=== PATIENT | female | born 1970 | race Caucasian/White ===

== ENCOUNTER 2021-04-26 16:18 | Outpatient (REF) | payer BC, SELFPAY ==
--- NOTE | ~2021-04-26 | MM_ITS ---
EXAMINATION: MM SCREENING DIGITAL BREAST TOMOSYNTHESIS, BILATERAL CLINICAL INFORMATION: Screening. Asymptomatic. The lifetime risk of breast cancer based on the Tyrer-Cuzick Model is 21.0%. Additional annual screening with breast MRI may be of benefit in women with a Score of 20% or greater. COMPARISON: Mammography: April 13, 2020 and studies dating back to July 27, 2012 TECHNIQUE: Digital breast tomosynthesis is performed in both the craniocaudal and mediolateral oblique views along with computer-aided detection (CAD). Synthesized 2D images are generated from the tomosynthesis. FINDINGS: The breasts are heterogeneously dense, which may obscure small masses (ACR BI-RADS breast composition Category c). There are no significant masses, abnormal calcifications, or other abnormalities. There are some stable circumscribed densities seen bilaterally. MM/MM tomosynthesis screening BI IMPRESSION: There are no significant changes from prior study. ASSESSMENT: BI-RADS 1: Negative RECOMMENDATION: Routine annual mammography screening. This patient's information was entered into a reminder system with a target due date for their next mammogram.
== END 2021-04-26 16:19 | disposition home or self-care (01) ==
LOC: HO.MAMMO 16:18
PROVIDERS: PCP Internal Medicine; Visit Provider Advanced Practice Midwife
DX: Z12.31 Encounter for screening mammogram for malignant neoplasm of breast (principal)
CPT/HCPCS: 77063; 77067

== ENCOUNTER 2022-05-02 15:58 | Outpatient (REF) | payer BC, SELFPAY ==
--- NOTE | ~2022-05-02 | MM_ITS ---
EXAMINATION: MM SCREENING DIGITAL BREAST TOMOSYNTHESIS, BILATERAL CLINICAL INFORMATION: Screening. Asymptomatic. The lifetime risk of breast cancer based on the Tyrer-Cuzick Model is 21%. COMPARISON: Mammography: 04/26/2021, 04/13/2020, 11/25/2018 TECHNIQUE: Digital breast tomosynthesis is performed in both the craniocaudal and mediolateral oblique views along with computer-aided detection (CAD). Synthesized 2D images are generated from the tomosynthesis. FINDINGS: There are scattered areas of fibroglandular density (ACR BI-RADS breast composition Category b). Breast tissue composition borders on heterogeneously dense. Small cyst mid 6:00 right breast is decreased since 2019. Parenchymal pattern is otherwise similar to prior exams. No developing density or interval mass or architectural abnormality. There are no significant masses, abnormal calcifications, or other abnormalities. The axilla and skin contours are unremarkable. MM/MM tomosynthesis screening BI IMPRESSION: No mammographic evidence of malignancy. ASSESSMENT: BI-RADS 2: Benign RECOMMENDATION: Routine annual mammography screening. This patient's information was entered into a reminder system with a target due date for their next mammogram.
== END 2022-05-02 15:59 | disposition home or self-care (01) ==
LOC: HO.MAMMO 15:58
PROVIDERS: PCP Obstetrics & Gynecology Gynecology; Visit Provider Internal Medicine
DX: Z12.31 Encounter for screening mammogram for malignant neoplasm of breast (principal)
CPT/HCPCS: 77063; 77067

== ENCOUNTER 2023-05-08 16:07 | Outpatient (REF) | payer BC, SELFPAY | END 2023-05-08 16:08 | disposition home or self-care (01) | LOC: HO.MAMMO 16:07 | PROVIDERS: Visit Provider Obstetrics & Gynecology Gynecology | DX: Z12.31 Encounter for screening mammogram for malignant neoplasm of breast (principal) | CPT/HCPCS: 77063; 77067 ==

== ENCOUNTER → 2023-05-08 16:15 | Outpatient (BNV) | payer BC, SELFPAY | PROVIDERS: Visit Provider Radiology Diagnostic Radiology | DX: Z12.31 Encounter for screening mammogram for malignant neoplasm of breast (principal) | CPT/HCPCS: 77063; 77067 ==

== ENCOUNTER 2024-05-20 11:06 | Outpatient (REF) | payer BC, SELFPAY ==
--- NOTE | ~2024-05-20 | MM_ITS ---
EXAMINATION: MM SCREENING DIGITAL BREAST TOMOSYNTHESIS, BILATERAL CLINICAL INFORMATION: Screening. Asymptomatic. COMPARISON: Mammography: Comparison is made with available priors TECHNIQUE: Digital breast mammography with tomosynthesis is performed in both the craniocaudal and mediolateral oblique views along with computer-aided detection (CAD). FINDINGS: The breasts are heterogeneously dense, which may obscure small masses (ACR BI-RADS breast composition Category c). There are no significant masses, abnormal calcifications, or other abnormalities. MM/MM tomosynthesis screening BI IMPRESSION: No mammographic evidence of malignancy. ASSESSMENT: BI-RADS BI-RADS 1 - Negative RECOMMENDATION: Routine annual mammography screening. 1 year F/U This examination should not preclude the clinical evaluation of a suspicious palpable abnormality. This patient's information was entered into a reminder system with a target due date for their next mammogram. Electronically signed by: Candi Walden DO 06/01/2024 12:27 PM EDT
== END 2024-05-20 11:07 | disposition home or self-care (01) ==
LOC: HO.MAMMO 11:06
PROVIDERS: PCP Nurse Practitioner Family; Visit Provider Nurse Practitioner Family
DX: Z12.31 Encounter for screening mammogram for malignant neoplasm of breast (principal)
CPT/HCPCS: 77063; 77067

== ENCOUNTER → 2024-05-20 11:30 | Outpatient (BNV) | payer BC, SELFPAY | PROVIDERS: PCP Nurse Practitioner Family; Visit Provider Internal Medicine | DX: Z12.31 Encounter for screening mammogram for malignant neoplasm of breast (principal) | CPT/HCPCS: 77063; 77067 ==

== ENCOUNTER 2025-05-27 11:33 | Outpatient (REF) | payer BC, SELFPAY ==
--- NOTE | ~2025-05-27 | MM_ITS ---
EXAMINATION: MM SCREENING DIGITAL BREAST TOMOSYNTHESIS, BILATERAL CLINICAL INFORMATION: Screening. Asymptomatic. COMPARISON: Mammography: Comparison is made with available priors TECHNIQUE: Digital breast mammography with tomosynthesis is performed in both the craniocaudal and mediolateral oblique views along with computer-aided detection (CAD). FINDINGS: The breasts are heterogeneously dense, which may obscure small masses. There are no significant masses, abnormal calcifications, or other abnormalities. MM/MM tomosynthesis screening BI IMPRESSION: No mammographic evidence of malignancy. ASSESSMENT: BI-RADS Category 1: Negative RECOMMENDATION: Routine annual mammography screening. 1 year F/U This examination should not preclude the clinical evaluation of a suspicious palpable abnormality. This patient's information was entered into a reminder system with a target due date for their next mammogram. Electronically signed by: Candi Walden DO 05/31/2025 08:59 AM EDT
--- OUTSIDE RECORDS SUMMARY | 2025-05-27 14:00 | XMS_ITS | Encounter Summary ---
Author Organization [facility] Address [address] [place] [address] Phone Care Team Providers Care Machine Spreader Name Role Phone Keren Taylor MD Unavailable [phone] Mandie Mcgowan WELDING SUPERVISOR Primary Care Provider + [phone] Reema Mosher CNP Primary Care Provider Encounter Details Date Type Department Care Team (Late st Contact Info) Description 07/17/2022 Procedure Pass [facility] - [address] [place] [address] Social History Tobacco Use Types Packs/Day Years Used Date Smoking Tobacco: Former Smokeless Tobacco: Never Alcohol Use Standard Drinks/Week Comments Yes 0 (1 standard drink = 0.6 oz pur e alcohol) rare Child or Family Care Answer Date Record ed Do you have problems with on e of the following making it difficult for you to work, study, or receive health care? No 10/14/2021 Education Answer Date Recorded Are you interested in help w ith more adult education (for example, completing high school, GED, job training, learning the [place] language, technical skills, or developing parenting skills)? No 10/14/2021 Food Answer Date Recorded Within the past 6 months we worried whether our food would run out before we got money to buy more. Never True 10/14/2021 Within the past 6 months the food we bought just didn't last and we didn't have enough money to get more. Never True Residential Stability Answer Date Recor ded What is your housing situation today? I have lubna ricketts 10/14/2021 How many times have you moved in the past 12 mon ths? One time 10/14/2021 Paying for Meds Answer Date Recorded Do you have trouble paying for medicines? No 10/14/2021 Paying Utility Bills Answer Date Record ed Do you have trouble paying your heating or elect ricity bill? No 10/14/2021 Transportation Answer Date Recorded Has the lack of transportati on kept you from medical appointments or from getting medications? No 10/14/2021 Unemployment Answer Date Recorded Are you currently unemployed or working on a part-time or temporary basis, and looking for work? 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 Not on file Not on file documented as of this encounter Last Filed Vital Signs Vital Sign Reading Time Taken Comments Blood Pressure - - Pulse - - Temperature - - Respiratory Rate - - Oxygen Saturation - - Inhaled Oxygen Concentration - - Weight 88.5 kg (195 lb) 07/19/2022 4:49 PM EST Height 165.1 cm (5' 5 ) 07/19/2022 4:49 PM EST Body Mass Index 32.45 07/19/2022 4:49 PM EST documented in this encounter Plan of Treatment Upcoming Encounters Date Type Department Care Team (Late st Contact Info) Description 06/15/2025 3:15 PM EST Office Visit [facility] [address] [place] [address] Ray Marie, DO [address] [facility], [address] [place] [address] [email or web address] Teressa Grant, PT [address] [place] [address] [email or web address] 06/22/2025 3:15 PM EST Office Visit [facility] [address] [place] [address] Ray Marie, DO [address] [address] JuanitaTeressa, PT [address] [place] [address] [email or web address] 06/29/2025 3:15 PM EST Office Visit [address] [address] Ray Marie, DO [address] [address] JuanitaTeressa, PT [address] [place] [address] [email or web address] 07/06/2025 3:15 PM EST Office Visit [address] [address] Ray Marie, DO [address] [address] JuanitaTeressa, PT [address] [place] [address] [email or web address] 07/13/2025 3:15 PM EST Office Visit [address] [address] Ray Marie, DO [address] [address] TimothyTeressa mello, PT [address] [place] [address] [email or web address] documented as of this encounter Visit Diagnoses Not on filedocumented in this encounter Additional Health Concerns Infection Onset Date Last Indicated Resolved Time CoV-Risk 07/10/2022 07/10/2022 07/21/2022 1:22 AM EST Assessment Noted Time PHQ-2 Depression Total Score: 0 10/15/19 8:22 PM EDT documented as of this encounter Care Teams Machine Spreader Relationship Specialty Start Date End Date Mandie Mcgowan CNP [address] [facility], [address]nd [place] [address] [email or web address] PCP - General Family Medicine 05/20/22 05/19/23 Reema Mosher CNP [address] [facility], [address] [place] [address] [email or web address] PCP - General Nurse Practitioner 05/20/23 Keren Taylor MD [address] [facility], [address] [place] [address] [email or web address] Insurance Assigned Provider 11/08/23 documented as of this encounter Additional Source Comments The information contained in this document represents components of the legal health record. It is not the complete legal health record.[facility]
--- OUTSIDE RECORDS SUMMARY | 2025-05-27 14:00 | XMS_ITS | Patient Health Record ---
Author Organization [facility] Address [address] [place] [address] Care Team Providers Care Shop Service Technician Name Role Phone Joey Pratt MD Primary Care Provider Kenneth De Leon Unavailable [phone] Reason For Referral No Information Medications Medication SIG (Take, Route, Fr equency, Duration) Notes Start Date End Date Status Omeprazole 20 MG TAKE 1 CAPSULE BY MO UTH EVERY MORNING; Duration: 30 Active Lisinopril Active Problems Problem Type SNOMED Code ICD Code Onset Dates Problem Status W/U Status Risk Notes Problem Right upper quadrant pain (298061996) Abdominal pain, right upper quadrant (789.01) Active confirmed Problem Epigastric pain (97289784) Abdominal pain, epigastric (789.06) Active confirmed Plan Of Treatment Pending Test Test Name Order Date LIVER PROFILE 05/29/2012 LIVER PROFILE 05/29/2012 AMYLASE 05/29/2012 AMYLASE 05/29/2012 LIPASE 05/29/2012 LIPASE 05/29/2012 CBC with MANUAL DIFFERENTIAL 05/29/2012 CBC with MANUAL DIFFERENTIAL 05/29/2012 SED RATE (ESR) 05/29/2012 Insurance Providers Payer Name Payer Address Payer Phone Subscriber Number Group Number Insured Name Patient Relationship to Insured Coverage Start Date Coverage End Date O [employer]UE [employer] PROFESSIONAL CLAIMS [address] [place] [address] [id number] MENDY UGALDE Self - patient is the insured Medical (General) History Medical History History ICD Code HTN Denies ME,DM,CVA,Lung disease,renal dise ase Surgical History Surgery Date(Month/Year) termination of oral surgery
--- OUTSIDE RECORDS SUMMARY | 2025-05-27 14:01 | XMS_ITS | Encounter Summary ---
Author Organization [facility] Address [address] [place] [address] Phone Care Team Providers Care Section Plotter Operator Name Role Phone Keren Taylor MD Unavailable [phone] Reema Mosher CNP Primary Care Provider Encounter Details Date Type Department Care Team (Late st Contact Info) Description 11/01/2023 Procedure Pass [facility], [facility] Scan - [facility] [address] [place] [address] Social History Tobacco Use Types Packs/Day Years [...] Answer Date Recorded Are you interested in more education? Not on jerald e 10/16/2023 Are you concerned about learning? Not on file 10/16/2023 No 10/16/2023 No 10/16/2023 Food Answer Date Recorded Within the past [...] your housing situation today? I have lubna sing 10/14/2021 How many times have you moved [...] basis, and looking for work? No 10/14/2021 Digital Access Answer Date Recorded No 12/31/2022 No 12/31/2022 Reliable internet access at home? Not on file 12/31/2022 Device with a working camera? Not on file Intimate Partner Violence Answer Date R ecorded Denied Basic Needs Not on file 06/20/2023 In the past 12 months have y ou been in a relationship with a person who hurts, threatens, or tries to control you? No 06/20/2023 Worried food would run out Not on file 06/20 In the past 12 months have y ou been in a relationship with a person who hurts, threatens, or tries to control you? 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 Wish to be (Past 1 Month) No 024 10:00 AM EDT Lyn Hendrickson, RN 2. Non-Specific Active Suici raissa Thoughts (Past 1 Month) No 11/01/2023 10:00 AM EDT Antoni Hendrickson RN 6. Suicidal Behavior (Lifetime) No 4 10:00 AM Lyn Lambert RN documented as of this encounter Plan of Treatment Upcoming Encounters Date Type Department Care Team (Late st Contact Info) Description 06/15/2025 3:15 PM EST Office Visit [address] [address] Ray Marie, DO [address] [address] Juanita Teressa, PT [address] [place] [address] [email or web address] 06/22/2025 3:15 PM EST Office Visit [address] [address] Ray Marie, DO [address] [address] Juanita Teressa, PT [address] [place] [address] [email or web address] 06/29/2025 3:15 PM EST Office Visit [address] [address] Ray Marie, DO [address] [address] Juanita Teressa, PT [address] [place] [address] [email or web address] 07/06/2025 3:15 PM EST Office Visit [address] [address] Ray Marie, DO [address] [address] Teressa Grant, PT [address] [place] [address] [email or web address] 07/13/2025 3:15 PM EST Office Visit [facility] [address] [place] [address] Ray Marie, DO 234 [facility], [address] [place] [address] Teressa Grant, PT [address] [place] [address] [email or web address] documented as of this encounter Visit Diagnoses Not on filedocumented in this encounter Additional Health Concerns Assessment Noted Time PHQ-2 Depression Total Score: 0 06/20/20 8:24 AM EST documented as of this encounter Care Teams Section Plotter Operator Relationship Specialty Start Date End Date Reema Mosher CNP 234 [facility] [address] [place] [address] PCP - General Nurse Practitioner 05/20/23 Keren Taylor MD 234 [facility] [address] [place] [address] Insurance Assigned Provider 11/08/23 documented as of this encounter Additional Source Comments The information contained in this document represents components of the legal health record. It is not the complete legal health record.[facility]
--- OUTSIDE RECORDS SUMMARY | 2025-05-27 14:01 | XMS_ITS | Clinical Summary ---
Author Organization [facility] Address [email or web address] [place] [address] Phone Care Team Providers Care Crane Helper Name Role Phone Keren Taylor MD Unavailable Reema Mosher CNP Primary Care Provider Allergies Active Allergy Reactions Criticality Noted Date Comments Pollen Extracts 06/12/2023 Medications oxyBUTYnin (DITROPAN-XL) 10 MG 24 hr tabletIndications :Overactive bladder TAKE 1 TABLET BY MOUTH EVERY DAY 90 tablet 3 5 Active lisinopril (PRINIVIL,ZESTRIL ) 40 MG tabletIndications :Essential hypertension TAKE 1 TABLET DAILY 90 tablet 3 5 Active buPROPion (WELLBUTRIN) 75 MG immediate release tabletIndications :Medication refill TAKE 1 TABLET BY MOUTH EVERY DAY IN THE MORNING 90 tablet 3 5 Active amLODIPine (NORVASC) 5 MG tabletIndications :Essential hypertension TAKE 1 TABLET (5 MG TOTAL) BY MOUTH DAILY. 90 tablet 3 5 Active Active Problems Problem Noted Date Diagnosed Date Chronic right SI joint pain 12/20/2024 Assessment & Plan (12/20/2024 10:54 AM EDT): I diagnosed Rae with right SI joint pain-getting worse. I ordered an x-ray of the lumbar spine to rule out any disc disease as she is also experiencing low back pain. I wrote for Flexeril-to be taken at night and not to drive or operate any heavy machinery as this can impair her judgment. I also wrote for prednisone-to be taken in the mornings and I gave guidance regarding side effects. I gave her exercises to start on. I gave guidance regarding additional symptomatic management. I put a referral into PT. I informed her to call if there are any other issues or concerns or if this gets worse. Follow-up in a month. She understands and agrees. Chronic midline low back pain without sciatica 0 12/20/2024 Assessment & Plan (12/20/2024 10:54 AM EDT): Rae has low back pain-I ordered an x-ray of the lumbar spine and I will update her with the results. Please see plan chronic right SI joint pain for further detail. Overweight (BMI 25.0-29.9) 06/20/2023 Assessment & Plan (12/22/2023 4:04 PM EDT): Congratulated on weight loss and continued efforts to improve diet. Encouraged to continue to increase exercise and movement. Assessment & Plan (06/20/2023 10:35 AM EST): Encouraged focusing on improvements to diet and exercise. Hypermobility of urethra 11/06/2022 Urge incontinence of urine 11/06/2022 Seasonal depression 10/02/2022 Assessment & Plan (12/22/2023 4:00 PM EDT): Stable, well managed on Wellbutrin 75mg, denies side effects. Denies SI/HI. Will continue this medication. Assessment & Plan (06/20/2023 10:31 AM EST): Continues Wellbutrin 75mg and is feeling well, denies side effects. Will continue this medication. Encouraged increasing exercise regimen. Assessment & Plan (11/06/2022 5:17 PM EDT): Continue Wellbutrin 75 mg. She had side effects at 150 mg Assessment & Plan (10/02/2022 5:34 PM EST): Counseled on regular exercise, sleep, self-care. Start Wellbutrin 150 mg daily. Possible side effects reviewed. Follow-up in 4 weeks. BMI 32.0-32.9,adult 05/27/2022 Assessment & Plan (11/06/2022 5:19 PM EDT): She has lost 16 pounds in the last 4 months. She is working hard with healthy dietary changes, reducing calorie intake and increasing exercise. Assessment & Plan (10/02/2022 5:33 PM EST): She plans to start exercising again although her motivation has been low. We are starting her on Wellbutrin to help with her depression Assessment & Plan (05/27/2022 7:34 PM EDT): Discussed getting back into exercise habits. She is finding motivation. Anxiety state 05/20/2022 Assessment & Plan (12/22/2023 4:00 PM EDT): Stable, well managed on Wellbutrin 75mg, denies side effects. Denies SI/HI. Will continue this medication. Assessment & Plan (05/27/2022 7:33 PM EDT): Encouraged self care, exercise. Used lorazepam for acute anxiety last week. Assessment & Plan (05/20/2022 2:23 PM EDT): Acute anxiety in the setting of recent in the family and her mother's severe health issues. She reports chronic anxiety that she generally roselia very well with. I gave her a short course of lorazepam. Possible side effects, sedating and potentially addictive nature of the medication were discussed with her. She will follow-up in 7 to 10 days. Essential hypertension 10/17/2021 Assessment & Plan (12/22/2023 3:51 PM EDT): Stable, well managed on amlodipine 5mg and lisinopril 40mg, denies side effects. Normotensive today. Will continue to monitor. Assessment & Plan (06/20/2023 10:27 AM EST): Wanaged on amlodipine 5mg and lisinopril 40mg, denies side effects. Normotensive today. Will continue to monitor. Assessment & Plan (11/06/2022 5:18 PM EDT): Her diastolic blood pressure is still above goal. She is going to continue working on lifestyle factors and follow-up in 8 weeks for recheck Assessment & Plan (10/02/2022 5:33 PM EST): Continue current regimen and start exercising regularly. Follow-up in 4 weeks Assessment & Plan (07/01/2022 8:30 PM EST): Well controlled now on lisinorpil 40 mg & amlodipine 5mg. BMP next month FU 3 mos Assessment & Plan (05/27/2022 7:32 PM EDT): Increase lisinopril to 40 mg. Continue amlodipine 5 mg. FU 1 month Assessment & Plan (05/20/2022 2:22 PM EDT): She is under acute stress and has just had a in the family. She is having anxiety symptoms daily. We agreed to address the acute anxiety with a short course of lorazepam and have her follow-up in 1 week for blood pressure recheck Primary insomnia 10/17/2021 Assessment & Plan (12/22/2023 4:01 PM EDT): Stable, managed using CBD edibles. Encouraged increasing exercise during the day to help with this as well. Assessment & Plan (06/20/2023 10:29 AM EST): Managed using CBD edibles. Discussed sleep hygiene and management techniques when waking in the middle of the night. Encouraged increasing exercise during the day to help with this as well. Tinnitus of both ears 10/17/2021 History of stress incontinence 10/17/2021 Assessment & Plan (10/02/2022 5:33 PM EST): She will follow-up with her urogynecologist. Her urine dip today was negative for any signs of infection. Her urine was concentrated which surely is contributing to the odor. Asked her to drink more water Overactive bladder 10/17/2021 Assessment & Plan (12/22/2023 3:59 PM EDT): Stable, reports well managed on oxybutynin 10mg. Denies side effects. Will continue to monitor. Assessment & Plan (06/20/2023 10:30 AM EST): Reports well managed on oxybutynin 10mg. Denies side effects. Will continue to monitor. Assessment & Plan (11/06/2022 5:17 PM EDT): Discussed overactive bladder. She is going to follow-up with her urogyn. We discussed trialing medication. My preference would be for mirabegron but her insurance does not cover it. She will try Ditropan. Possible side effects reviewed with her. I recommend pelvic floor PT but she declines Cervical high risk HPV (human papillomavirus) te st positive 08/21/2021 Overview (09/12/2023): Pap NIL and neg HPV in 2021 Assessment & Plan (09/12/2023 5:22 PM EST): Recommend repeat in 3 years, which would be 2024, and if negative consider going back to every 5-year screening Assessment & Plan (08/21/2021 5:21 PM EST): Had detailed discussion re HPV as finding on a pap, the cells were normal so she does not have condyloma Pap is due inJune 2021, if still pos HPV, will need colposcopy Resolved Problems Problem Noted Date Diagnosed Date Resolved Date Hair loss 05/20/2023 06/20/2023 Assessment & Plan (05/20/2023 2:24 PM EDT): Rae presents for ongoing hair loss for over 2 months-I will have her go for above lab work and I will update her with results. Also advised her that stress may be playing a factor. Follow-up with new PCP as needed. She will call if there are any other issues or concerns. She understands and agrees. Tired 05/20/2023 06/20/2023 Assessment & Plan (05/20/2023 2:25 PM EDT): Rae has been feeling more tired recently-about 2 months now. I will have her go for the above lab work and I will update her with the results. Advised her to follow-up with her new PCP in the near future. She will call if there are any other issues or concerns. She understands and agrees. Right elbow pain 05/20/2023 06/20/2023 Assessment & Plan (05/20/2023 2:25 PM EDT): Rae will go for lab work-I will update her with the results. Lateral epicondylitis of right elbow 05/20/2023 06/20/2023 Assessment & Plan (06/20/2023 10:28 AM EST): Reports this is improved with exercises. 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 I informed her to call if there are any other issues or concerns or if this gets worse. She understands and agrees. Subacute maxillary sinusitis 11/27/2022 06/20/2023 Assessment & Plan (11/27/2022 9:06 AM EDT): I diagnosed Rae with a sinusitis and treated her with doxycycline-to be taken as directed. Also given guidance regarding additional symptomatic management. I informed her to call if things do not improve or if things get worse in a week. She understands and agrees. Nocturia 11/06/2022 06/20/2023 Urine frequency 11/06/2022 11/06/2022 Palpitations 07/01/2022 06/20/2023 Assessment & Plan (07/01/2022 8:32 PM EST): Chronic, brief, occasional flutter- description c/w PAC or PVC. No red flag sx. Reassured. Sent pt info sheet Vaginal odor 08/21/2021 05/27/2022 Overview (08/21/2021): Neg eval for any infectious causes Assessment & Plan (08/21/2021 5:20 PM EST): Recommend once weekly repHresh x 4 weeks; if not better, can opt for use of E2 in vaginal cream, use and R&B discussed so she can call for this Rx Menorrhagia with regular cycle 08/21/2021 06/20/2023 Overview (10/17/2021): POP for management. Encounters Date Type Department Care Team Description 05/02/2025 Patient Outreach [facility] [address] [place] [address] Faith Santiago Care Coordination 04/25/2025 Patient Outreach [facility] [address] [place] [address] Faith Santiago Care Coordination 04/20/2025 3:15 PM EDT Office Visit [address] [address] Ray Marie, Teressa Richardson, PT Chronic right SI joint pain (Primary Dx) 04/13/2025 3:15 PM EDT Office Visit [address] [address] Ray Marie DO Scanlon-Flynn, Mary, PT Chronic right SI joint pain (Primary Dx) 03/30/2025 3:15 PM EDT Office Visit [address] [address] Ray Marie DO Scanlon-Flynn, Mary, PT Chronic right SI joint pain (Primary Dx) 03/23/2025 3:15 PM EDT Office Visit [address] [place] [address] Ray Marie, Teressa Richardson, PT Chronic right SI joint pain (Primary Dx) 03/09/2025 7:30 AM EDT Office Visit [facility] [address] [place] [address] Ray Marie, Teressa Richardson, PT Chronic right SI joint pain (Primary Dx) 03/05/2025 11:10 AM EDT Office Visit [facility] at [address] [place] [address] Cortney Ware, NORTH Encounter for removal of sutures (Primary Dx) 03/02/2025 7:30 AM EDT Office Visit [facility] [address] [place] [address] Ray Marie, Teressa Richardson, PT Chronic right SI joint pain (Primary Dx) 02/24/2025 3:00 PM EDT Office Visit [facility] at [address] [place] [address] Jessica Davison, GERMAIN Laceration of left thumb without foreign body without damage to nail, initial encounter (Primary Dx) from Last 3 Months Immunizations Immunization Administration Dates Next Due COVID-19 (Pre-05/26) Moderna Vaccine, Bivalent 6mo+ 05/31/2022 COVID-19 (Pre-05/26) Pfizer Vaccine, mRNA, PF 10/12/2020 INFLUENZA, SPLIT VIRUS, TRIVALENT PF 05/18/2015 Influenza Quadrivalent Preservative Free IM 06/04,05/27/2022,04/25/2020 Influenza Quadrivalent w/ Preservative IM 2013 Pneumococcal conjugate PCV20 12/30/2024 Tdap 07/01/2022 Zoster recombinant 07/31/2020,06/01/2020 Family History Medical History Relation Comments Atrial fibrillation Mother Colon cancer Mother Lymphoma Mother b cell Atrial fibrillation Sister 1 Relation Status Comments Father Alive Maternal Grandfather Maternal Grandmother Mother Alive Paternal Grandfather Paternal Grandmother Sister 1 Alive Sister 2 Alive Social History Tobacco Use Types Packs/Day Years Used Date Smoking Tobacco: Former Smokeless Tobacco: Never Tobacco Cessation:Counseling Given: Not Answered Alcohol Use Standard Drinks/Week Comments Yes 0 (1 standard drink = 0.6 oz pur e alcohol) rare Child or Family Care Answer Date Record ed Do you have problems with on e of the following making it difficult for you to work, study, or receive health care? No 12/30/2024 Education Answer Date Recorded Are you interested in help w ith more adult education (for example, completing high school, GED, job training, learning the [place] language, technical skills, or developing parenting skills)? No 12/30/2024 Are you concerned about learning? Not on file 12/30/2024 No 12/30/2024 Yes 12/30/2024 Food Answer Date Recorded Within the past 6 months we worried whether our food would run out before we got money to buy more. Never True 12/30/2024 Within the past 6 months the food we bought just didn't last and we didn't have enough money to get more. Never True Residential Stability Answer Date Recor ded What is your housing situation today? I have lubna sing 12/30/2024 How many times have you move d in the past 12 months? Zero (I did not move) 12/30/2024 Paying for Meds Answer Date Recorded Do you have trouble paying for medicines? No 12/30/2024 Paying Utility Bills Answer Date Record ed Do you have trouble paying your heating or elect ricity bill? No 12/30/2024 Transportation Answer Date Recorded Has the lack of transportati on kept you from medical appointments or from getting medications? No 12/30/2024 Unemployment Answer Date Recorded Are you currently unemployed or working on a part-time or temporary basis, and looking for work? No 10/14/2021 Digital Access Answer Date Recorded No 12/30/2024 Yes 12/30/2024 Do you have reliable internet access at home? Ye s 12/30/2024 Do you have a device (e.g., phone, tablet, computer) with a working camera? Yes 12/30/2024 Intimate Partner Violence Answer Date R ecorded Denied Basic Needs Not on file 12/30/2024 In the past 12 months have y ou been in a relationship with a person who hurts, threatens, or tries to control you? No 12/30/2024 Worried food would run out Not on file 12/30 In the past 12 months have y ou been in a relationship with a person who hurts, threatens, or tries to control you? 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 Not on file Not on file Not on file Last Filed Vital Signs Vital Sign Reading Time Taken Comments Blood Pressure 126/84 05/03/2025 3:57 PM EDT pt reported bp via gw Pulse 106 03/05/2025 11:23 AM EDT Temperature 36.9 C (98.4 F) 12/30/2024 8:22 AM EDT Respiratory Rate 16 03/05/2025 11:2 3 AM EDT Oxygen Saturation 99% 03/05/2025 11: 23 AM EDT Inhaled Oxygen Concentration - - Weight 77.1 kg (170 lb) 03/05/2025 11:2 3 AM EDT Height 165.1 cm (5' 5 ) 03/05/2025 11:2 3 AM EDT Body Mass Index 28.29 03/05/2025 11:23 AM EDT Plan of Treatment Upcoming Encounters Date Type Department Care Team (Late st Contact Info) Description 06/15/2025 3:15 PM EST Office Visit [facility] [address] [place] [address] Ray Marie, DO [address] [facility] [address] [place] [address] Teressa Grant, PT [address] [place] [address] [email or web address] 06/22/2025 3:15 PM EST Office Visit [facility] [address] [place] [address] Ray Marie, DO [address] [address] Juanita Teressa, PT [address] [place] [address] [email or web address] 06/29/2025 3:15 PM EST Office Visit [address] [address] Ray Marie, DO [address] [address] Juanita Teressa, PT [address] [place] [address] [email or web address] 07/06/2025 3:15 PM EST Office Visit [address] [address] Ray Marie, DO [address] [address] Juanita Teressa, PT [address] [place] [address] [email or web address] 07/13/2025 3:15 PM EST Office Visit [address] [address] Ray Marie, DO [address] [address] Juanita Teressa, PT [address] [place] [address] [email or web address] Health Maintenance Due Date Last Done Comments SMOKING Hx and SMOKELESS TOBACCO SCREENING 1983 COLOGUARD 2015 FIT TEST 2015 FOBT 2015 SIGMOIDOSCOPY 2015 VIRTUAL COLONOSCOPY 2015 INFLUENZA VACCINE (#1) 2025 , 05/27/2022, 04/25/2020, Additional history exists COVID-19 VACCINE ( season) 2025 05/31/2022, 06/08/2021, 11/02/2020, Additional history exists BLOOD PRESSURE 10/31/2025 05/03/2025 CREATININE LEVEL 12/30/2025 12/30/2024, , 05/20/2023, Additional history exists DEPRESSION SCREENING 12/30/2025 12/30/2024 HEPATITIS C SCREENING 12/30/2025 Postpo ruben from 1988 (Patient Declines / Guardian Declines) HIV ONE-TIME SCREENING (18-65 YEARS) 12/30/2025 Postponed from 1988 (Patient Declines / Guardian Declines) POTASSIUM LEVEL 12/30/2025 12/30/2024, 10/04, 05/20/2023, Additional history exists MAMMOGRAM 06/22/2026 06/22/2024, 05/04, 05/08/2023, Additional history exists LIPID PANEL 05/28/2027 05/28/2022, 05/28/2022 SCREENING FOR DIABETES 12/31/2027 12/30/2024 COLONOSCOPY 10/02/2028 10/03/2023 COLORECTAL CANCER SCREENING 10/02/2028 PAP SMEAR 12/30/2029 12/30/2024, 06/04, 12/29/2020 Adult Td,Tdap Booster 07/01/2032 07/01/2022 RSV VACCINE (1 - 1-dose 75+ series) 2045 ZOSTER VACCINES Completed 07/31/2020, 06/01/2020 PNEUMOCOCCAL VACCINES (50+ years) Completed 12/30/2024 HEPATITIS A VACCINES Aged Out No long er eligible based on patient's age to complete this topic HIB VACCINES Aged Out No longer eligi ble based on patient's age to complete this topic MENINGOCOCCAL VACCINES (ACWY) Aged Out No longer eligible based on patient's age to complete this topic MENINGOCOCCAL VACCINES (B) Aged Out N o longer eligible based on patient's age to complete this topic Medical Devices Not on file Procedures Procedure Name Priority Date/Time Associated Diagnosis Comments LACERATION REPAIR Routine 02/24/2025 4:2 4 PM EDT Laceration of left thumb without foreign body without damage to nail, initial encounter COMPREHENSIVE METABOLIC PANEL Routine 12/30/2024 9:06 AM EDT Essential hypertension PAP TEST Routine 12/30/2024 12:00 AM EDT HM MAMMOGRAPHY Routine 06/22/2024 11:52 AM EST HM COLONOSCOPY FOR RESULT ENTRY ONLY Routine 10/03/2023 1:50 PM EST LIPID PANEL Routine 05/28/2022 7:34 AM EDT Essential hypertension from Last 3 Months or Most Recently Relevant to Health Maintenance Results * LACERATION REPAIR (02/24/2025 4:24 PM EDT) Other Narrative Jessica Davison PA-C - 02/24/2025 4:24 PM EDT Jessica Davison PA-C 02/24/2025 4:27 PM Laceration/Wound Repair Date/Time: 02/24/2025 4:24 PM Performed by: Jessica Davison PA-C Authorized by: Jessica Davison PA-C Injury: Body area: Upper extremity Location details: Left thumb 1 Laceration length (cm): 0.8 Foreign bodies: No foreign bodies Tendon involvement: None Nerve involvement: None Vascular damage?: No Patient sedated?: No Anesthesia: Local anesthesia used? Yes Anesthesia: local infiltration Local anesthetic: lidocaine 1% without epinephrine Lidocaine without Epinephrine total (ml): 2 Procedure Details: Preparation: Patient was prepped and draped in usual sterile fashion Irrigation solution: Saline Irrigation method: Syringe Amount of cleaning: Standard Debridement: None Undermining: None Skin closure: Ethilon Number of sutures: 2 Suture technique: Simple Approximation: Close Dressing: Antibiotic ointment Patient tolerance: Patient tolerated the procedure well with no immediate complications Jessica Davison PA-C PROCEDURE/MINOR SURGICAL ORD ERABLES Final Result * (ABNORMAL) Comprehensive metabolic panel (12/30/2024 9:06 AM EDT) SODIUM 138 133 - 146 mmol/L [facility] POTASSIUM 4.8 3.3 - 5.1 mmol/L [facility] CHLORIDE 101 96 - 108 mmol/L [facility] CO2 27 21 - 35 mmol/L [facility] BUN 20(H) 6 - 19 mg/dL [facility] CREATININE 0.80 0.5 - 1.5 mg/dL [facility] GLUCOSE 98 70 - 99 mg/dL [facility] ALBUMIN 4.6 3.9 - 4.8 g/dL [facility] TOTAL PROTEIN 7.5 6.5 - 8.0 g/dL [facility] CALCIUM 10.0 8.4 - 10.3 mg/dL [facility] ALKALINE PHOSPHATASE 73 39 - 117 U/L [facility] TOTAL BILIRUBIN 0.7 0.0 - 1.2 mg/dL [facility] AST 24 0 - 37 U/L [facility] ALT 21 0 - 40 U/L [facility] GLOBULIN 2.9 1 - 4.8 g/dL [facility] EGFR 88 >59 mL/min/1.7 3m2 [facility] Comment:Estimated glomerular filtration rate calculated using the CKD-EPI refit equation. ANION GAP 15 10 - 20 mmol/L [facility] Blood 12/30/2024 9:06 AM EDT 12/30/2024 9:10 AM EDT Supriya Wade FELT [facility] LAB BLOOD ORDERABLES Final Re sult [address] [address] * Pap Test (12/30/2024 12:00 AM EDT) Report [address] [address] [facility] Attendant: Srinivasa Rolle MD [facility] Cytology Report FINAL DIAGNOSIS A. PAP SMEAR (THIN PREP) CE: SPECIMEN ADEQUACY: Satisfactory for evaluation; transformation zone present. INTERPRETATION: NEGATIVE FOR INTRAEPITHELIAL LESION OR MALIGNANCY. This specimen was analyzed by the automated ThinPrep Imaging System (Ichiba.) and the selected fowler were reviewed by a motor builder assembler. Electronically Signed Out By: MONTRELL Mcnulty(ASCP) The Pap test is a screening test primarily for squamous cancers and precursors and has associated false-negative and false-positive results. New technologies such as liquid-based preparations may decrease but will not eliminate all false-negative results. Regular sampling and follow-up of unexplained clinical signs and symptoms are recommended to minimize false negative results. PROCEDURES/ADDENDA HPV Testing (Requested) Ordered Date: 12/31/2024 A. PAP SMEAR (THIN PREP) CE: High-risk HPV Panel w/ extended genotyping NEG HPV 16-NEG HPV 18-NEG HPV 45-NEG HPV 33/58-NEG HPV 31-NEG HPV 56/59/66-NEG HPV 51-NEG HPV 52-NEG HPV 35/39/68-NEG Performed by real-time polymerase chain reaction (PCR) at [address] using the FDA-approved Giveit100 Onclarity HPV Assay with extended genotyping. Uses of the assay in scenarios other than those approved by the FDA should be considered off-label use. The accuracy and precision of this test for all other off-label specimen sources has been verified in the Cytopathology Laboratory of the [facility] and has not been cleared or approved by the U.S. Food and Drug Administration. Clinical correlation is advised. The assay assesses the E6/E7 DNA target and utilizes human beta globin as an internal control. Cytology and HPV testing are screening assays and should not be used as the sole means of detecting cancer. False-positives and false-negatives can occur. CLINICAL HISTORY Date of Last Menstrual Period: 1 YEAR AGO Menstrual History: Post Menopausal Other Clinical Conditions: Screening Pap SPECIMEN SOURCE A: PAP SMEAR (THIN PREP) CE Patient Name: RAE UGALDE : 1970 (Age: 54) Sex: F Institution: [facility] Location: [facility] Date of Collection: 12/30/2024 Date of Reported: 01/10/2025 07:46 Results to: Supriya Wade MSN [facility] Final Diagnosis A. PAP SMEAR (THIN PREP) CE: SPECIMEN ADEQUACY: Satisfactory for evaluation; transformation zone present. INTERPRETATION: NEGATIVE FOR INTRAEPITHELIAL LESION OR MALIGNANCY. This specimen was analyzed by the automated ThinPrep Imaging System (Ichiba.) and the selected fowler were reviewed by a motor builder assembler. [facility] Results\Inter pretation A. PAP SMEAR (THIN PREP) CE: High-risk HPV Panel w/ extended genotyping NEG HPV 16-NEG HPV 18-NEG HPV 45-NEG HPV 33/58-NEG HPV 31-NEG HPV 56/59/66-NEG HPV 51-NEG HPV 52-NEG HPV 35/39/68-NEG Performed by real-time polymerase chain reaction (PCR) at [facility], [address] [place] [address] using the FDA-approved Giveit100 Onclarity HPV Assay with extended genotyping. Uses of the assay in scenarios other than those approved by the FDA should be considered off-label use. The accuracy and precision of this test for all other off-label specimen sources has been verified in the Cytopathology Laboratory of the [facility] and has not been cleared or approved by the U.S. Food and Drug Administration. Clinical correlation is advised. The assay assesses the E6/E7 DNA target and utilizes human beta globin as an internal control. Cytology and HPV testing are screening assays and should not be used as the sole means of detecting cancer. False-positives and false-negatives can occur. [facility] Conversion Type (Conversion Source) 12/30/2024 12/31/2024 9:57 AM EDT Supriya Wade [facility] CYTOLOGY ORDERABLES Edited Re christ - Final [facility] [address] [place] [address] * HM MAMMOGRAPHY FOR RESULT ENTRY ONLY (06/22/2024 11:52 AM EST) us Reema Mosher [facility] Edited Re christ - Final * COLONOSCOPY FOR RESULT ENTRY ONLY (10/03/2023 1:50 PM EST) Historical Provider HEALTH MAINTENANCE Final Result * Lipid panel (05/28/2022 7:34 AM EDT) HDL 43 mg/dL [facility] Comment: Interpretation <40 mg/dL: Low HDL cholesterol (major risk factor for CHD) Greater than or equal to 60 mg/dL: High HDL cholesterol ( negative risk factor for CHD) HDL - cholesterol is affected by a number of factors, e.g. smoking, excerise, hormones, sex and age. CHOLESTEROL 170 0 - 240 mg/dL [facility] TRIGLYCERIDES 109 30 - 160 mg/dL [facility] LDL 105 50 - 129 mg/dL [facility] Comment: LDL levels in terms of risk for coronary heart disease: <100 mg/dL: Optimal 100-129 mg/dL: Near or above optimal 130-159 mg/dL: Borderline high 160-189 mg/dL: High >190 mg/dL: Very High CARDIAC RISK RATIO 4.0 3.3 - 4.4 C [facility] Blood 05/28/2022 7:34 AM EDT 05/28/2022 7:41 AM EDT Mandie Mcgowan [facility] BLOOD ORDERABLES Final Result Performing Organization Address City/State/[facility] Co de Phone Number [facility] [address] [place] [address] from Last 3 Months or Most Recently Relevant to Health Maintenance Insurance [facility] [address] [place] [address] [facility] Care Teams Crane Helper Relationship Specialty Start Date End Date Reema Mosher CNP [address], [address] [place] [address] [email or web address] PCP - General Nurse Practitioner 05/20/23 Keren Taylor MD [address], [address] [place] [address] [email or web address] Insurance Assigned Provider 11/08/23 Additional Source Comments The information contained in this document represents components of the legal health record. It is not the complete legal health record.[facility]
== END 2025-05-27 11:34 | disposition home or self-care (01) ==
LOC: HO.MAMMO 11:33
PROVIDERS: PCP Nurse Practitioner Family; Visit Provider Nurse Practitioner Family
DX: Z12.31 Encounter for screening mammogram for malignant neoplasm of breast (principal)
CPT/HCPCS: 77063; 77067

== ENCOUNTER → 2025-05-27 11:45 | Outpatient (BNV) | payer BC, SELFPAY | PROVIDERS: PCP Nurse Practitioner Family; Visit Provider Internal Medicine | DX: Z12.31 Encounter for screening mammogram for malignant neoplasm of breast (principal) | CPT/HCPCS: 77063; 77067 ==